=== PATIENT | male | born 1945 | race African-American/Black ===

== ENCOUNTER 2019-11-18 08:39 | Inpatient (IN) | payer OTHER ==
[2019-11-17 11:10] VITALS: BMI 25.9
--- NOTE | 2019-11-18 08:02 | HP ---
History & Physical Update - History History: No Change - Physical Physical: No Change - Assessment Assessment: No Change - Plan Plan: No Change
--- NOTE | 2019-11-18 08:03 | OP ---
Operative Note - Note: Operative Date: 11/18/19 Pre-Operative Diagnosis: prostate cancer Operation: prostate cryoablation and cystoscopy Post-Operative Diagnosis: Same as Pre-op Surgeon: Reid Green Anesthesiologist/AIRSET MOLDER: Mandy Ferrera Anesthesia: General Estimated Blood Loss (mls): 0 Drains & Tubes with Location: 18 fr fuller Operative Report Dictated: Yes
[2019-11-18] MEDS ORDERED: ACETAMINOPHEN 325 MG TABLET (FP) PO PRN (08:50)
[2019-11-18] MEDS ORDERED: ONDANSETRON 4 MG/2 ML VIAL IVPUSH PRN (08:50)
[2019-11-18] MEDS ORDERED: oxyCODONE HCL 5 MG TABLET PO PRN ×2 (08:50)
[2019-11-18] MEDS ORDERED: LACTATED RINGERS SOLUTION 1,000 ML IV SCH (09:00)
[2019-11-18] MEDS ORDERED: LIDOCAINE HCL/PF 2% SDV 5ML VIAL ONE ×2 (10:36→12:54)
[2019-11-18] MEDS ORDERED: PROPOFOL 20 ML ONE (10:36)
[2019-11-18] MEDS ORDERED: DESFLURANE GAS 240 ML BOTTLE IH ONE (10:38)
[2019-11-18] MEDS ORDERED: ceFAZolin SODIUM 1 GM VIAL IVPB ONE (11:56)
[2019-11-18] MEDS ORDERED: ceFAZolin SODIUM 1 GM VIAL ONE (12:21)
[2019-11-18] MEDS ORDERED: ROCURONIUM BROMIDE 50 MG/5 ML SYRINGE ONE (12:40)
[2019-11-18] MEDS ORDERED: PHENYLEPHRINE HCL 10 MG/1 ML SINGLE DOSE VIAL ONE (12:43)
[2019-11-18] MEDS ORDERED: GLYCOPYRROLATE 0.2 MG/1 ML VIAL ONE ×2 (12:47→13:19)
[2019-11-18] MEDS ORDERED: NEOSTIGMINE METHYLSULFATE 0.5 MG/1 ML - 10 ML MDV ONE (12:47)
[2019-11-18] MEDS ORDERED: KETOROLAC TROMETHAMINE 10 MG TABLET PO PRN (16:23)
[2019-11-18] MEDS: AMOX TR/POT CLAV 500MG/125MG TABLETS (FP) PO SCH (17:43)
[2019-11-18] MEDS: LACTATED RINGERS SOLUTION 1,000 ML IV SCH (17:46)
[2019-11-18] MEDS ORDERED: PT OWN MED DRAWER 7, Y5N ONE (21:32)
[2019-11-18] MEDS: DOXAZOSIN MESYLATE 4 MG TABLET PO SCH (21:35)
--- NOTE | 2019-11-18 23:45 | OP ---
DATE OF OPERATION: 11/18/2019 PREOPERATIVE DIAGNOSIS: Prostate cancer. POSTOPERATIVE DIAGNOSIS: Prostate cancer. PROCEDURE: Prostate cryoablation and cystoscopy. SURGEON: Reid Downey MD OIL HOUSE ATTENDANT: None. ANESTHESIA: General via endotracheal tube. ANESTHESIOLOGIST: HAYDEN Posada SPECIMENS: None. CULTURES: None. DRAINS: An 18-Botswanan Morejon catheter. ESTIMATED BLOOD LOSS: Negligible. COMPLICATIONS: None. DESCRIPTION OF PROCEDURE: Patient brought in the operating room, placed on the operating table in supine position. After the administration of intravenous antibiotics, sequential compression devices were placed. The patient was placed in dorsal lithotomy position. Perineum was shaved first, and the perineum and genitals were prepped and draped in usual sterile manner. An 18-B[place]wanan Morejon catheter was placed per urethra, and 10 mL placed in the balloon. Bladder was filled with 400 mL of sterile normal saline and clamped. The scrotum was elevated with a towel clip. Patient was prepped and draped in usual sterile manner and transrectal ultrasound probe was placed per rectum and transrectal ultrasound of the prostate was done. A plan was then devised for a whole-gland prostate cryoablation using 6 probes. Now, all 6 cryoablation probes were placed in the appropriate locations under ultrasound guidance. Two temperature sensors were placed, one in the external sphincter, one in the Denonvilliers fascia. Now, the indwelling Morejon catheter was removed. Flexible cystoscopy was done, demonstrated normal anterior urethra. Prostatic urethra demonstrated status post GreenLight laser ablation with some regrowth of the lateral lobes. Bladder was entered and thoroughly inspected. There were no foreign bodies, tumors, stones, or inflammation. Both ureteral orifices were in their usual location with clear efflux bilaterally. The Super Stiff guidewire was passed through the cystoscope and into the bladder. Cystoscope was removed. Urethral warmer was passed over the Super Stiff guidewire, and urethral warming was started. The probe positions were reconfirmed, and then, the cryoablation was done with 2 freeze/thaw cycles. At the end of the second thaw, temperature sensors and cryoablation probes were removed, leaving the urethral warmer in for an additional 5 minutes. Then, it was removed. The Morejon catheter replaced with an 18-Botswanan and placed on gravity drainage. Return minimally blood tinged. He had a sterile compressive dressing with bacitracin, 4 x 4, and Tegaderm. He tolerated the procedure well, was awoken from anesthesia in the operating room and extubated, transferred to the recovery room in stable condition. REID DOWNEY M.D. [id number]
--- NOTE | 2019-11-19 10:58 | PN ---
Progress Note (short form) - Note Progress Note: Anesthesia post op note POD#1. S/P Cystoscopy and cryoablation of prostate, under GA. Patient was admitted overnight due to poor oxygenation on room air. CXR, shows no acute abnormalities. Pat was prescribed Insentive spirometry and O2 on nasal cannula. This morning AAOX3. In bed not in any distress. saturation 88-94, after Deep inspirations and IS use. Patient quit smoking 5 months ago, reports no current URI. Vital signs stable otherwise. Suggesting eval by hospitalist/wool tamper, follow up. PFT? Continue O2 nasal cannula and IS.
[2019-11-19] MEDS: AMOX TR/POT CLAV 500MG/125MG TABLETS (FP) PO SCH ×2 (11:00→18:19)
--- NOTE | 2019-11-19 11:30 | PN ---
Physical Exam: SUBJECTIVE: Patient seen and examined at the bedside. Sitting in chair, denies any chest pain or shortness of breath. Feels well overall. Has never been diagnosed with any COPD or asthma in the past. No longer smokes, quit apx 5 months ago (used to smoke 1 pack per day since age 28). 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 OBJECTIVE: abg now d dimer now trop now ekg now Patient is a 74 year old male wth a significant past medical history of prostate cancer and former smoker. His other past medical history includes kidney stones, bph, lumbago, elevated psa with nocturia. Patient is s/p prostate cryoablation and cystoscopy on 11/18/2019 and post op noted to have hypoxia on room air with oxygen saturations at 88%. He is currently on 2 liters of nasal cannula with stable oxygen saturations. On exam patient appears comfortable sitting in chair, his breathing is easy and unlabored. fuller catheter with gross hematuria. he is speaking in clear sentences (danish speaking) imaging/studies: chest xray: no acute pathology abg: respiratory acidosis and metabolic alkalosis with hypoxemia ddimer: 92266, for a chest cta today to rule out pe trop negative x 1, trending Vital Signs Period Temp Pulse Resp BP Sys/Barrera Pulse Ox Last 24 Hr 97.4 F-99.4 F 70-100 13-20 90-148/50-85 94-98 GENERAL: The patient is awake, alert, and fully oriented, in no acute distress. HEAD: Normal with no signs of trauma. EYES: PERRL, extraocular movements intact, sclera anicteric, conjunctiva clear. No ptosis. ENT: Ears normal, nares patent, oropharynx clear without exudates, moist mucous membranes. NECK: Trachea midline, full range of motion, supple. LUNGS: Breath sounds diminished bilaterally, no wheezing, no crackles. no accessory muscle use HEART: Regular rate and rhythm, S1, S2 without murmur, rub or gallop. ABDOMEN: Soft, nontender, nondistended, normoactive bowel sounds, no guarding, no rebound, no hepatosplenomegaly, no masses. EXTREMITIES: no edema. NEUROLOGICAL: Normal speech, gait not observed. PSYCH: Normal mood, normal affect. SKIN: Warm, dry, normal turgor, no rashes or lesions noted Active Medications Generic Name Dose Route Start Last Admin Trade Name Freq PRN Reason Stop Dose Admin Acetaminophen 650 mg 11/18/19 08:50 Tylenol - PO Q4H PRN Pain-PACU ORDER X 2 DOSES ONLY Amoxicillin/Clavulanate Potassium 1 tab 11/18/19 17:30 11/18/19 17:43 Augmentin - 500mg Tablet PO 1 tab BIDWM WENDY Administration Doxazosin Mesylate 4 mg 11/18/19 22:00 11/18/19 21:35 Cardura - PO 4 mg HS WENDY Administration Lactated Ringer's 1,000 mls @ 75 mls/hr 11/18/19 16:30 11/18/19 17:46 Lactated Ringers Solution IV 75 mls/hr ASDIR WENDY Administration Ketorolac Tromethamine 10 mg 11/18/19 16:23 Toradol PO 11/23/19 16:22 Q6H PRN PAIN LEVEL 7-10 Ondansetron HCl 4 mg 11/18/19 08:50 Zofran Injection IVPUSH Q6H PRN NAUSEA AND/OR VOMITING ASSESSMENT/PLAN: Problem List - Problems (1) Hypoxia Assessment/Plan: Patient is s/p prostate cryoablation and cystoscopy on 11/18/2019 and post op noted to have hypoxia on room air with oxygen saturations at 88%. He is currently on 2 liters of nasal cannula with stable oxygen saturations. chest xray without any acute pathology started on incentive spirometer elevated d dimer for chest cta to further evaluate trending troponins pulmonary consult Code(s): R09.02 - HYPOXEMIA (2) Shortness of breath Code(s): R06.02 - SHORTNESS OF BREATH (3) Elevated d-dimer Assessment/Plan: elevated at 16k for chest cta to rule out PE, however, patient without tachycardia or chest pain. Code(s): R79.89 - OTHER SPECIFIED ABNORMAL FINDINGS OF BLOOD CHEMISTRY (4) Prostate cancer Assessment/Plan: Patient is s/p prostate cryoablation and cystoscopy on 11/18/2019, fuller cath with gross hematuria. hmg/hct stable. Code(s): C61 - MALIGNANT NEOPLASM OF PROSTATE (5) DVT prophylaxis Assessment/Plan: SCDs only secondary to gross hematuria Code(s): Z29.9 - ENCOUNTER FOR PROPHYLACTIC MEASURES, UNSPECIFIED (6) Prophylactic measure Assessment/Plan: fen tolerating po monitor electrolytes full code Code(s): Z29.9 - ENCOUNTER FOR PROPHYLACTIC MEASURES, UNSPECIFIED Visit type - Emergency Visit Emergency Visit: Yes Care time: The patient presented to the Emergency Department on the above date and was hospitalized for further evaluation of their emergent condition. - New Patient This patient is new to me today: Yes Date on this admission: 11/19/19 - Critical Care Critical Care patient: No - Discharge Referral Referred to [facility] Med P.C.: No
[2019-11-19 12:24] LABS: ARTERIAL BLD GAS O2 SATURATION 87.2 % (95-98); ARTERIAL BLOOD GAS PCO2 39.9 mmHg (35-45); ARTERIAL BLOOD GAS pH 7.44 (7.35-7.45)
[2019-11-19 12:25] LABS: ALLENS TEST POSITIVE
[2019-11-19] MEDS ORDERED: ALBUTEROL SO4 2.5/IPRATROPIUM 0.5 INH SOL 3 ML VIAL.NEB. NEB PRN (12:29)
[2019-11-19] MEDS ORDERED: PT OWN MED DRAWER 7, Y5N ONE ×3 (12:47→21:14)
[2019-11-19 14:12] LABS: BASO % 0.1 % (0-2.0); EOS % 0.7 % (0-4.5); HEMATOCRIT 37.6 % (35.4-49); HEMOGLOBIN 12.5 GM/dL (11.7-16.9); LYMPH % 11.8 % (8-40); MCH 30.1 pg (25.7-33.7); MCHC 33.4 g/dl (32.0-35.9); MEAN CELL VOLUME 90.2 fl (80-96); MONO % 8.8 % (3.8-10.2); NEUT % 78.6 % (42.8-82.8); PLATELET COUNT 135 K/MM3 (134-434); RBC 4.16 M/mm3 (4.00-5.60); RDW 15.1 % (11.9-15.9); WHITE BLOOD COUNT 8.1 K/mm3 (4.0-10.0)
[2019-11-19 14:29] LABS: ALBUMIN 2.6 g/dl (3.4-5.0); ALK PHOS 43 U/L (45-117); ANION GAP 6 MMOL/L (8-16); BILIRUBIN,TOTAL 0.7 mg/dL (0.2-1); BLOOD UREA NITROGEN 16.6 mg/dL (7-18); CALCIUM 8.1 mg/dL (8.5-10.1); CHLORIDE 108 mmol/L (98-107); CO2 28 mmol/L (21-32); CREATININE 1.1 mg/dL (0.55-1.3); GLUCOSE,RANDOM 140 mg/dL (74-106); MAGNESIUM 1.8 mg/dL (1.8-2.4); POTASSIUM 3.9 mmol/L (3.5-5.1); SGOT/AST 46 U/L (15-37); SGPT/ALT 26 U/L (13-61); SODIUM 141 mmol/L (136-145); TOT PROT 5.4 g/dl (6.4-8.2)
--- NOTE | 2019-11-19 17:40 | CON.PULM ---
Consult Consult Specialty:: PULMONARY Referred by:: NICOLASA Reason for Consultation:: HYPOXEMIA - History of Present Illness Chief Complaint: ADMITTED FOR UROLOGIC PROCEDURE History of Present Illness: Patient is a 74 year old male wth a significant past medical history of prostate cancer and former smoker,quit 5 months ago. Other history includes kidney stones, bph, lumbago,. Patient is s/p prostate cryoablation and cystoscopy yesterday and during post op care was noted to have hypoxia on room air with oxygen saturations at 88%. He is currently on 2 liters of nasal cannula with stable oxygen saturations. 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 Cardio/Vascular: No: AFIB Pulmonary: Yes: Other (no official dx of copd as per the patient) Gastrointestinal: No: Ascites Hepatobiliary: No: Cirrhosis Renal/: Yes: BPH, Cancer, Renal Calculi Heme/Onc: No: Anemia Psych: No: Addictions Musculoskeletal: Yes: Chronic low back pain Rheumatology: No: Fibromyalgia Endocrine: No: [place]'s Disease - Past Surgical History Additional Surgical History: cystoscopy/cryo=ablation prostate - Alcohol/Substance Use Hx Alcohol Use: No History of Substance Use: reports: None - Smoking History Smoking history: Former smoker Have you smoked in the past 12 months: Yes - Social History Place of : Other History of Recent Travel: No Home Medications - Allergies Allergies/Adverse Reactions: Allergies Allergy/AdvReac Type Severity Reaction Status Date / Time No Known Allergies Allergy Verified 11/17/19 11:10 - Home Medications Home Medications: Ambulatory Orders Doxazosin Mesylate 4 mg PO HS 11/17/19 Amoxicillin/Potassium Clav [Augmentin 500-125 Tablet] 1 each PO BID 7 Days #14 tablet 11/18/19 Ketorolac Tromethamine [Toradol] 10 mg PO Q6H #28 tablet 11/18/19 Family Medical History Family History: Unremarkable Review of Systems - Review of Systems Cardiovascular: denies: Chest Pain Respiratory: denies: Cough, Hemoptysis, SOB on Exertion, Wheezing Gastrointestinal: denies: Abdominal Pain Physical Exam Vital Sings: Vital Signs Temperature 99.4 F 11/19/19 14:59 Pulse Rate 81 11/19/19 14:59 Respiratory Rate 18 11/19/19 14:59 Blood Pressure 127/73 11/19/19 14:59 O2 Sat by Pulse Oximetry (%) 94 L 11/18/19 17:38 Constitutional: Yes: Calm Eyes: Yes: EOM Intact HENT: Yes: Normocephalic Neck: Yes: Trachea Midline Cardiovascular: Yes: S1, S2 Respiratory: Yes: CTA Bilaterally Gastrointestinal: Yes: Normal Bowel Sounds Renal/: Yes: Morejon Present Extremities: No: Calf Tenderness Edema: No Labs: CBC, BMP 11/19/19 13:30 11/19/19 13:30 ABG Results ABG pH 7.44 (7.35-7.45) 11/19/19 12:10 ABG pCO2 at Pt Temp 39.9 mmHg (35-45) 11/19/19 12:10 ABG pO2 at Pt Temp 54.0 mmHg (80-100) L 11/19/19 12:10 ABG HCO3 26.8 mmol/L (22-27) 11/19/19 12:10 ABG O2 Sat (Measured) 87.2 % (95-98) L 11/19/19 12:10 ABG O2 Content 15.9 % vol 11/19/19 12:10 ABG Base Excess 3.0 meq/l (-2-2) H 11/19/19 12:10 Imaging - Results Chest X-ray: Report Reviewed, Image Reviewed Cat Scan: Report Reviewed, Image Reviewed Problem List - Problems (1) Status post cystoscopy Code(s): Z98.890 - OTHER SPECIFIED POSTPROCEDURAL STATES (2) DVT prophylaxis Code(s): Z29.9 - ENCOUNTER FOR PROPHYLACTIC MEASURES, UNSPECIFIED (3) Hypoxia Code(s): R09.02 - HYPOXEMIA (4) Prostate cancer Code(s): C61 - MALIGNANT NEOPLASM OF PROSTATE Assessment/Plan CTA NEGATIVE FOR PE D-DIMER ELEVATED POST-OPERATIVELY EMPHYSEMATOUS CHANGES ON CT CHEST LIKELY RESPONSIBLE FOR HYPOXIA WOULD START MAINTENANCE BRONCHODILATORS OBTAINSPO2 PRE/POST AMBULATION TO DETERMINE NEED FOR HOME O2 Priyank CASILLAS MD
[2019-11-19] MEDS: BUDESONIDE/FORMETEROL FUMARATE 80/4.5 mcg INHALER IH SCH (22:16)
[2019-11-19] MEDS: LACTATED RINGERS SOLUTION 1,000 ML IV SCH (22:17)
[2019-11-19] MEDS: DOXAZOSIN MESYLATE 4 MG TABLET PO SCH (22:17)
[2019-11-20] MEDS ORDERED: PT OWN MED DRAWER 7, Y5N ONE ×4 (08:41→21:04)
[2019-11-20 09:16] LABS: EOS % 1.7 % (0-4.5); HEMOGLOBIN 12.8 GM/dL (11.7-16.9); LYMPH % 21.3 % (8-40); MCH 30.1 pg (25.7-33.7); MCHC 33.6 g/dl (32.0-35.9); MEAN CELL VOLUME 89.8 fl (80-96); MEAN PLT VOLUME 7.7 fl (7.5-11.1); MONO % 11.8 % (3.8-10.2); NEUT % 64.2 % (42.8-82.8); PLATELET COUNT 127 K/MM3 (134-434); RBC 4.23 M/mm3 (4.00-5.60); RDW 15.6 % (11.9-15.9); WHITE BLOOD COUNT 6.7 K/mm3 (4.0-10.0)
--- NOTE | 2019-11-20 09:38 | PN ---
Physical Exam: SUBJECTIVE: Patient seen and examined OBJECTIVE: Vital Signs Period Temp Pulse Resp BP Sys/Barrera Pulse Ox Last 24 Hr 98.1 F-99.4 F 79-97 18-20 127-159/67-77 GENERAL: The patient is awake, alert, and fully oriented, in no acute distress. HEAD: Normal with no signs of trauma. EYES: PERRL, extraocular movements intact, sclera anicteric, conjunctiva clear. No ptosis. ENT: Ears normal, nares patent, oropharynx clear without exudates, moist mucous membranes. NECK: Trachea midline, full range of motion, supple. LUNGS: Breath sounds equal, clear to auscultation bilaterally, no wheezes, no crackles, no accessory muscle use. HEART: Regular rate and rhythm, S1, S2 without murmur, rub or gallop. ABDOMEN: Soft, nontender, nondistended, normoactive bowel sounds, no guarding, no rebound, no hepatosplenomegaly, no masses. EXTREMITIES: 2+ pulses, warm, well-perfused, no edema. NEUROLOGICAL: Cranial nerves II through XII grossly intact. Normal speech, gait not observed. PSYCH: Normal mood, normal affect. SKIN: Warm, dry, normal turgor, no rashes or lesions noted Laboratory Results - last 24 hr 11/19/19 11/19/19 11/19/19 12:10 13:30 13:30 WBC RBC Hgb Hct MCV MCH MCHC RDW Plt Count MPV Absolute Neuts (auto) Neutrophils % Lymphocytes % Monocytes % Eosinophils % Basophils % Nucleated RBC % D-Dimer 26151 H Anticoagulation Therapy No Result Required. Puncture Site Right radial ABG pH 7.44 ABG pCO2 at Pt Temp 39.9 ABG pO2 at Pt Temp 54.0 L ABG HCO3 26.8 ABG O2 Sat (Measured) 87.2 L ABG O2 Content 15.9 ABG Base Excess 3.0 H Fidencio Test Positive Patient On Oxygen Yes O2 Delivery Device Nasal Oxygen Flow Rate 1l Vent Mode No Result Required. Vent Rate No Result Required. Mechanical Rate No Result Required. Pressure Support Vent No Result Required. Sodium 141 Potassium 3.9 Chloride 108 H Carbon Dioxide 28 Anion Gap 6 L BUN 16.6 Creatinine 1.1 Est GFR (CKD-EPI)AfAm 75.18 Est GFR (CKD-EPI)NonAf 64.86 Random Glucose 140 H Calcium 8.1 L Magnesium 1.8 Total Bilirubin 0.7 AST 46 H ALT 26 Alkaline Phosphatase 43 L Troponin I < 0.02 Total Protein 5.4 L Albumin 2.6 L 11/19/19 11/19/19 11/20/19 13:30 19:33 04:00 WBC 8.1 RBC 4.16 Hgb 12.5 Hct 37.6 MCV 90.2 MCH 30.1 MCHC 33.4 RDW 15.1 Plt Count 135 MPV 8.0 Absolute Neuts (auto) 6.4 Neutrophils % 78.6 Lymphocytes % 11.8 Monocytes % 8.8 Eosinophils % 0.7 Basophils % 0.1 Nucleated RBC % 0 D-Dimer Anticoagulation Therapy Puncture Site ABG pH ABG pCO2 at Pt Temp ABG pO2 at Pt Temp ABG HCO3 ABG O2 Sat (Measured) ABG O2 Content ABG Base Excess Fidencio Test Patient On Oxygen O2 Delivery Device Oxygen Flow Rate Vent Mode Vent Rate Mechanical Rate Pressure Support Vent Sodium Potassium Chloride Carbon Dioxide Anion Gap BUN Creatinine Est GFR (CKD-EPI)AfAm Est GFR (CKD-EPI)NonAf Random Glucose Calcium Magnesium Total Bilirubin AST ALT Alkaline Phosphatase Troponin I 0.03 0.03 Total Protein Albumin 11/20/19 08:55 WBC 6.7 RBC 4.23 Hgb 12.8 Hct 38.0 MCV 89.8 MCH 30.1 MCHC 33.6 RDW 15.6 Plt Count 127 L MPV 7.7 Absolute Neuts (auto) 4.3 Neutrophils % 64.2 Lymphocytes % 21.3 D Monocytes % 11.8 H Eosinophils % 1.7 D Basophils % 1.0 D Nucleated RBC % 0 D-Dimer Anticoagulation Therapy Puncture Site ABG pH ABG pCO2 at Pt Temp ABG pO2 at Pt Temp ABG HCO3 ABG O2 Sat (Measured) ABG O2 Content ABG Base Excess Fidencio Test Patient On Oxygen O2 Delivery Device Oxygen Flow Rate Vent Mode Vent Rate Mechanical Rate Pressure Support Vent Sodium Potassium Chloride Carbon Dioxide Anion Gap BUN Creatinine Est GFR (CKD-EPI)AfAm Est GFR (CKD-EPI)NonAf Random Glucose Calcium Magnesium Total Bilirubin AST ALT Alkaline Phosphatase Troponin I Total Protein Albumin Active Medications Generic Name Dose Route Start Last Admin Trade Name Freq PRN Reason Stop Dose Admin Acetaminophen 650 mg 11/18/19 08:50 Tylenol - PO Q4H PRN Pain-PACU ORDER X 2 DOSES ONLY Albuterol/Ipratropium 1 amp 11/19/19 12:29 Duoneb - NEB Q6H PRN SHORTNESS OF BREATH Amoxicillin/Clavulanate Potassium 1 tab 11/18/19 17:30 11/19/19 18:19 Augmentin - 500mg Tablet PO 1 tab BIDWM WENDY Administration Budesonide/Formoterol Fumarate 2 puff 11/19/19 22:00 11/19/19 22:16 Symbicort 80/4.5mcg - IH 2 puff BID WENDY Administration Doxazosin Mesylate 4 mg 11/18/19 22:00 11/19/19 22:17 Cardura - PO 4 mg HS WENDY Administration Lactated Ringer's 1,000 mls @ 75 mls/hr 11/18/19 16:30 11/19/19 22:17 Lactated Ringers Solution IV 75 mls/hr ASDIR WENDY Administration Ketorolac Tromethamine 10 mg 11/18/19 16:23 Toradol PO 11/23/19 16:22 Q6H PRN PAIN LEVEL 7-10 Ondansetron HCl 4 mg 11/18/19 08:50 Zofran Injection IVPUSH Q6H PRN NAUSEA AND/OR VOMITING ASSESSMENT/PLAN: Problem List - Problems (1) Hypoxia Code(s): R09.02 - HYPOXEMIA (2) Shortness of breath Code(s): R06.02 - SHORTNESS OF BREATH (3) Elevated d-dimer Code(s): R79.89 - OTHER SPECIFIED ABNORMAL FINDINGS OF BLOOD CHEMISTRY (4) Prostate cancer Code(s): C61 - MALIGNANT NEOPLASM OF PROSTATE (5) DVT prophylaxis Code(s): Z29.9 - ENCOUNTER FOR PROPHYLACTIC MEASURES, UNSPECIFIED (6) Prophylactic measure Code(s): Z29.9 - ENCOUNTER FOR PROPHYLACTIC MEASURES, UNSPECIFIED
--- NOTE | 2019-11-20 09:47 | PN ---
Progress Note (short form) - Note Progress Note: Physical Exam: SUBJECTIVE: Patient seen and examined at the bedside. Sitting in chair, denies any chest pain or shortness of breath. Feels well overall. Has never been diagnosed with any COPD or asthma in the past. No longer smokes, quit apx 5 months ago (used to smoke 1 pack per day since age 28). Works in [employer] for over 20 years at [employer] and is exposed to cleaning chemicals. OBJECTIVE: abg now d dimer now trop now ekg now Patient is a 74 year old male wth a significant past medical history of prostate cancer and former smoker. His other past medical history includes kidney stones , bph, lumbago, elevated psa with nocturia. Patient is s/p prostate cryoablation and cystoscopy on 11/18/2019 and post op noted to have hypoxia on room air with oxygen saturations at 88%. He is currently on 2 liters of nasal cannula with stable oxygen saturations. On exam patient appears comfortable sitting in chair, his breathing is easy and unlabored. fuller catheter with gross hematuria. he is speaking in clear sentences (estonian speaking) imaging/studies: chest xray: no acute pathology abg: respiratory acidosis and metabolic alkalosis with hypoxemia ddimer: 99571, for a chest cta today to rule out pe trop negative x 1, trending Vital Signs Period Temp Pulse Resp BP Sys/Barrera Pulse Ox Last 24 Hr 97.4 F-99.4 F 70-100 13-20 90-148/50-85 94-98 GENERAL: The patient is awake, alert, and fully oriented, in no acute distress. HEAD: Normal with no signs of trauma. EYES: PERRL, extraocular movements intact, sclera anicteric, conjunctiva clear. No ptosis. ENT: Ears normal, nares patent, oropharynx clear without exudates, moist mucous membranes. NECK: Trachea midline, full range of motion, supple. LUNGS: Breath sounds diminished bilaterally, no wheezing, no crackles. no accessory muscle use HEART: Regular rate and rhythm, S1, S2 without murmur, rub or gallop. ABDOMEN: Soft, nontender, nondistended, normoactive bowel sounds, no guarding, no rebound, no hepatosplenomegaly, no masses. EXTREMITIES: no edema. NEUROLOGICAL: Normal speech, gait not observed. PSYCH: Normal mood, normal affect. SKIN: Warm, dry, normal turgor, no rashes or lesions noted Active Medications Generic Name Dose Route Start Last Admin Trade Name Freq PRN Reason Stop Dose Admin Acetaminophen 650 mg 11/18/19 08:50 Tylenol - PO Q4H PRN Pain-PACU ORDER X 2 DOSES ONLY Amoxicillin/Clavulanate Potassium 1 tab 11/18/19 17:30 11/18/19 17:43 Augmentin - 500mg Tablet PO 1 tab BIDWM WENDY Administration Doxazosin Mesylate 4 mg 11/18/19 22:00 11/18/19 21:35 Cardura - PO 4 mg HS WENDY Administration Lactated Ringer's 1,000 mls @ 75 mls/hr 11/18/19 16:30 11/18/19 17:46 Lactated Ringers Solution IV 75 mls/hr ASDIR WENDY Administration Ketorolac Tromethamine 10 mg 11/18/19 16:23 Toradol PO 11/23/19 16:22 Q6H PRN PAIN LEVEL 7-10 Ondansetron HCl 4 mg 11/18/19 08:50 Zofran Injection IVPUSH Q6H PRN NAUSEA AND/OR VOMITING ASSESSMENT/PLAN: Problem List - Problems (1) Hypoxia Assessment/Plan: Patient is s/p prostate cryoablation and cystoscopy on 11/18/2019 and post op noted to have hypoxia on room air with oxygen saturations at 88%. He is currently on 2 liters of nasal cannula with stable oxygen saturations. chest xray without any acute pathology started on incentive spirometer elevated d dimer for chest cta to further evaluate trending troponins pulmonary consult Code(s): R09.02 - HYPOXEMIA (2) Shortness of breath Code(s): R06.02 - SHORTNESS OF BREATH (3) Elevated d-dimer Assessment/Plan: elevated at 16k for chest cta to rule out PE, however, patient without tachycardia or chest pain. Code(s): R79.89 - OTHER SPECIFIED ABNORMAL FINDINGS OF BLOOD CHEMISTRY (4) Prostate cancer Assessment/Plan: Patient is s/p prostate cryoablation and cystoscopy on 11/18/2019, fuller cath with gross hematuria. hmg/hct stable. Code(s): C61 - MALIGNANT NEOPLASM OF PROSTATE (5) DVT prophylaxis Assessment/Plan: SCDs only secondary to gross hematuria Code(s): Z29.9 - ENCOUNTER FOR PROPHYLACTIC MEASURES, UNSPECIFIED (6) Prophylactic measure Assessment/Plan: fen tolerating po monitor electrolytes full code Code(s): Z29.9 - ENCOUNTER FOR PROPHYLACTIC MEASURES, UNSPECIFIED
--- NOTE | 2019-11-20 09:52 | EKG ---
Test Reason : Blood Pressure : / mmHG Vent. Rate : 096 BPM Atrial Rate : 096 BPM P-R Int : 150 ms QRS Dur : 082 ms QT Int : 348 ms P-R-T Axes : 066 -01 037 degrees QTc Int : 439 ms SINUS RHYTHM WITH OCCASIONAL PREMATURE VENTRICULAR COMPLEXES OTHERWISE NORMAL ECG NO PREVIOUS ECGS AVAILABLE Confirmed by Julio Liu MD ([id number]) on 11/20/2019 9:52:09 AM Referred By: Reid Green Confirmed By:Julio Liu MD
[2019-11-20 09:55] LABS: ALBUMIN 2.8 g/dl (3.4-5.0); BILIRUBIN,TOTAL 0.8 mg/dL (0.2-1); BLOOD UREA NITROGEN 14.1 mg/dL (7-18); CALCIUM 8.1 mg/dL (8.5-10.1); MAGNESIUM 1.8 mg/dL (1.8-2.4); POTASSIUM 3.8 mmol/L (3.5-5.1); TOT PROT 5.6 g/dl (6.4-8.2)
[2019-11-20] MEDS: AMOX TR/POT CLAV 500MG/125MG TABLETS (FP) PO SCH ×2 (10:48→17:31)
[2019-11-20] MEDS: BUDESONIDE/FORMETEROL FUMARATE 80/4.5 mcg INHALER IH SCH ×2 (10:48→21:18)
--- NOTE | 2019-11-20 13:49 | PN ---
Progress Note (short form) - Note Progress Note: PULMONARY OFFERS NO COMPLAINTS VSS/AFEBRILE Constitutional: Yes: Calm Eyes: Yes: EOM Intact HENT: Yes: Normocephalic Neck: Yes: Trachea Midline Cardiovascular: Yes: S1, S2 Respiratory: Yes: CTA Bilaterally Gastrointestinal: Yes: Normal Bowel Sounds Renal/: Yes: Morejon Present Extremities: No: Calf Tenderness Edema: No Labs: NOTED - Results Chest X-ray: Report Reviewed, Image Reviewed Cat Scan: Report Reviewed, Image Reviewed Problem List - Problems (1) Status post cystoscopy Code(s): Z98.890 - OTHER SPECIFIED POSTPROCEDURAL STATES (2) DVT prophylaxis Code(s): Z29.9 - ENCOUNTER FOR PROPHYLACTIC MEASURES, UNSPECIFIED (3) Hypoxia Code(s): R09.02 - HYPOXEMIA (4) Prostate cancer Code(s): C61 - MALIGNANT NEOPLASM OF PROSTATE Assessment/Plan CTA NEGATIVE FOR PE D-DIMER ELEVATED POST-OPERATIVELY EMPHYSEMATOUS CHANGES ON CT CHEST LIKELY RESPONSIBLE FOR HYPOXIA WOULD START MAINTENANCE BRONCHODILATORS SPO2 PRE/POST AMBULATION REVIEWED/PATIENT REQUIRES HOME O2 Priyank CASILLAS MD Problem List - Problems (1) Status post cystoscopy Code(s): Z98.890 - OTHER SPECIFIED POSTPROCEDURAL STATES (2) DVT prophylaxis Code(s): Z29.9 - ENCOUNTER FOR PROPHYLACTIC MEASURES, UNSPECIFIED (3) Hypoxia Code(s): R09.02 - HYPOXEMIA (4) Prostate cancer Code(s): C61 - MALIGNANT NEOPLASM OF PROSTATE
--- NOTE | 2019-11-20 15:15 | PN ---
Physical Exam: SUBJECTIVE: Patient seen and examined at the bedside. he ambulated with the respiratory therapist around the pod. He denies any dizziness or lig htheadedness with ambulation. OBJECTIVE: Patient is a 74 year old male with a significant past medical history of prostate cancer and former smoker. His other past medical history includes kidney stones, bph, lumbago, elevated psa with nocturia. Patient is s/p prostate cryoablation and cystoscopy on 11/18/2019 and post op noted to have hypoxia on r oom air with oxygen saturations at 88%. He is currently on 2 liters of nasal cannula with stable oxygen saturations. On exam patient appears comfortable ambulating around the pod, his breathing is easy and unlabored. fuller catheter with gross hematuria. he is speaking in clear sentences ([place] speaking). Per respiratory pre and post, patient requires home oxygen therapy. imaging/studies: chest xray: no acute pathology abg: respiratory acidosis and metabolic alkalosis with hypoxemia ddimer: 62723, chest cta negative for PE, found to have severe COPD and centr ilobular emphysema mainly in the upper lobes. troponins negative. Vital Signs Period Temp Pulse Resp BP Sys/Barrera Pulse Ox Last 24 Hr 98.1 F-99.4 F 79-114 18-19 127-159/67-77 93 GENERAL: The patient is awake, alert, and fully oriented, in no acute distress. HEAD: Normal with no signs of trauma. EYES: PERRL, extraocular movements intact, sclera anicteric, conjunctiva clear. No ptosis. ENT: Ears normal, nares patent, oropharynx clear without exudates, moist mucous membranes. NECK: Trachea midline, full range of motion, supple. LUNGS: Breath sounds diminished bilaterally, no wheezing, no crackles. no accessory muscle use HEART: Regular rate and rhythm, S1, S2 without murmur, rub or gallop. ABDOMEN: Soft, nontender, nondistended, normoactive bowel sounds, no guarding, no rebound, no hepatosplenomegaly, no masses. EXTREMITIES: no edema. NEUROLOGICAL: Normal speech, gait not observed. PSYCH: Normal mood, normal affect. SKIN: Warm, dry, normal turgor, no rashes or lesions noted Laboratory Results - last 24 hr 11/19/19 11/19/19 11/19/19 13:30 13:30 13:30 WBC 8.1 RBC 4.16 Hgb 12.5 Hct 37.6 MCV 90.2 MCH 30.1 MCHC 33.4 RDW 15.1 Plt Count 135 MPV 8.0 Absolute Neuts (auto) 6.4 Neutrophils % 78.6 Lymphocytes % 11.8 Monocytes % 8.8 Eosinophils % 0.7 Basophils % 0.1 Nucleated RBC % 0 D-Dimer 05635 H Sodium 141 Potassium 3.9 Chloride 108 H Carbon Dioxide 28 Anion Gap 6 L BUN 16.6 Creatinine 1.1 Est GFR (CKD-EPI)AfAm 75.18 Est GFR (CKD-EPI)NonAf 64.86 Random Glucose 140 H Calcium 8.1 L Magnesium 1.8 Total Bilirubin 0.7 AST 46 H ALT 26 Alkaline Phosphatase 43 L Troponin I < 0.02 Total Protein 5.4 L Albumin 2.6 L 11/19/19 11/20/19 11/20/19 19:33 04:00 08:55 WBC 6.7 RBC 4.23 Hgb 12.8 Hct 38.0 MCV 89.8 MCH 30.1 MCHC 33.6 RDW 15.6 Plt Count 127 L MPV 7.7 Absolute Neuts (auto) 4.3 Neutrophils % 64.2 Lymphocytes % 21.3 D Monocytes % 11.8 H Eosinophils % 1.7 D Basophils % 1.0 D Nucleated RBC % 0 D-Dimer Sodium Potassium Chloride Carbon Dioxide Anion Gap BUN Creatinine Est GFR (CKD-EPI)AfAm Est GFR (CKD-EPI)NonAf Random Glucose Calcium Magnesium Total Bilirubin AST ALT Alkaline Phosphatase Troponin I 0.03 0.03 Total Protein Albumin 11/20/19 08:55 WBC RBC Hgb Hct MCV MCH MCHC RDW Plt Count MPV Absolute Neuts (auto) Neutrophils % Lymphocytes % Monocytes % Eosinophils % Basophils % Nucleated RBC % D-Dimer Sodium 141 Potassium 3.8 Chloride 107 Carbon Dioxide 27 Anion Gap 7 L BUN 14.1 Creatinine 1.0 Est GFR (CKD-EPI)AfAm 84.36 Est GFR (CKD-EPI)NonAf 72.78 Random Glucose 136 H Calcium 8.1 L Magnesium 1.8 Total Bilirubin 0.8 AST 36 ALT 24 Alkaline Phosphatase 42 L Troponin I Total Protein 5.6 L Albumin 2.8 L Active Medications Generic Name Dose Route Start Last Admin Trade Name Freq PRN Reason Stop Dose Admin Acetaminophen 650 mg 11/18/19 08:50 Tylenol - PO Q4H PRN Pain-PACU ORDER X 2 DOSES ONLY Albuterol/Ipratropium 1 amp 11/19/19 12:29 Duoneb - NEB Q6H PRN SHORTNESS OF BREATH Amoxicillin/Clavulanate Potassium 1 tab 11/18/19 17:30 11/20/19 10:48 Augmentin - 500mg Tablet PO 1 tab BIDWM WENDY Administration Budesonide/Formoterol Fumarate 2 puff 11/19/19 22:00 11/20/19 10:48 Symbicort 80/4.5mcg - IH 2 puff BID WENDY Administration Doxazosin Mesylate 4 mg 11/18/19 22:00 11/19/19 22:17 Cardura - PO 4 mg HS WENDY Administration Lactated Ringer's 1,000 mls @ 75 mls/hr 11/18/19 16:30 11/19/19 22:17 Lactated Ringers Solution IV 75 mls/hr ASDIR WENDY Administration Ketorolac Tromethamine 10 mg 11/18/19 16:23 Toradol PO 11/23/19 16:22 Q6H PRN PAIN LEVEL 7-10 Ondansetron HCl 4 mg 11/18/19 08:50 Zofran Injection IVPUSH Q6H PRN NAUSEA AND/OR VOMITING ASSESSMENT/PLAN: Problem List - Problems (1) Hypoxia Assessment/Plan: Patient is s/p prostate cryoablation and cystoscopy on 11/18/2019 and post op noted to have hypoxia on room air with oxygen saturations at 88%. He is currently on 2 liters of nasal cannula with stable oxygen saturations. chest xray without any acute pathology. negative for PE, but found to have moderately severe COPD and stress centrilobular emphysema. Started on Symbicort on incentive spirometer will need f/u with technical testing engineer as an outpatient. Code(s): R09.02 - HYPOXEMIA (2) Shortness of breath Code(s): R06.02 - SHORTNESS OF BREATH (3) Elevated d-dimer Assessment/Plan: elevated at 16k chest ct negative for PE Code(s): R79.89 - OTHER SPECIFIED ABNORMAL FINDINGS OF BLOOD CHEMISTRY (4) Prostate cancer Assessment/Plan: Patient is s/p prostate cryoablation and cystoscopy on 11/18/2019, fuller cath with gross hematuria. hmg/hct stable. Code(s): C61 - MALIGNANT NEOPLASM OF PROSTATE (5) DVT prophylaxis Assessment/Plan: SCDs only secondary to gross hematuria Code(s): Z29.9 - ENCOUNTER FOR PROPHYLACTIC MEASURES, UNSPECIFIED (6) Prophylactic measure Assessment/Plan: fen tolerating po monitor electrolytes full code Code(s): Z29.9 - ENCOUNTER FOR PROPHYLACTIC MEASURES, UNSPECIFIED Visit type - Emergency Visit Emergency Visit: Yes ED Registration Date: 11/19/19 Care time: The patient presented to the Emergency Department on the above date and was hospitalized for further evaluation of their emergent condition. - New Patient This patient is new to me today: No - Critical Care Critical Care patient: No - Discharge Referral Referred to [facility] Med P.C.: No
[2019-11-20] MEDS: DOXAZOSIN MESYLATE 4 MG TABLET PO SCH (21:18)
[2019-11-21] MEDS ORDERED: PT OWN MED DRAWER 7, Y5N ONE (09:43)
[2019-11-21] MEDS: BUDESONIDE/FORMETEROL FUMARATE 80/4.5 mcg INHALER IH SCH (09:44)
[2019-11-21] MEDS: AMOX TR/POT CLAV 500MG/125MG TABLETS (FP) PO SCH (09:44)
--- NOTE | 2019-11-21 10:36 | DS ---
Physical Exam: SUBJECTIVE: Patient seen and examined OBJECTIVE: Patient seen and examined at the bedside. he ambulated with the respiratory therapist around the pod. He denies any dizziness or lightheadedness with ambulation. OBJECTIVE: Patient is a 74 year old male with a significant past medical history of prostate cancer and former smoker. His other past medical history includes kidney stones, bph, lumbago, elevated psa with nocturia. Patient is s/p prostate cryoablation and cystoscopy on 11/18/2019 and post op noted to have hypoxia on room air with oxygen saturations at 88%. He is currently on 2 liters of nasal cannula with stable oxygen saturations. On exam patient appears comfortable ambulating around the pod, his breathing is easy and unlabored. fuller catheter with gross hematuria. he is speaking in clear sentences (divehi speaking). Per respiratory pre and post, patient requires home oxygen therapy. imaging/studies: chest xray: no acute pathology abg: respiratory acidosis and metabolic alkalosis with hypoxemia ddimer: 93467, chest cta negative for PE, found to have severe COPD and centrilobular emphysema mainly in the upper lobes. troponins negative. Vital Signs Period Temp Pulse Resp BP Sys/Barrera Pulse Ox Last 24 Hr 98 F-98.5 F 69-83 18-20 122-143/66-75 93-93 PHYSICAL EXAM GENERAL: The patient is awake, alert, and fully oriented, in no acute distress. HEAD: Normal with no signs of trauma. EYES: PERRL, extraocular movements intact, sclera anicteric, conjunctiva clear. No ptosis. ENT: Ears normal, nares patent, oropharynx clear without exudates, moist mucous membranes. NECK: Trachea midline, full range of motion, supple. LUNGS: Breath sounds diminished bilaterally throughout lung [place] HEART: Regular rate and rhythm, S1, S2 without murmur, rub or gallop. ABDOMEN: Soft, nontender, nondistended, normoactive bowel sounds, no guarding, no rebound, no hepatosplenomegaly, no masses. EXTREMITIES: no edema. NEUROLOGICAL: Normal speech, gait not observed. PSYCH: Normal mood, normal affect. SKIN: Warm, dry, normal turgor, no rashes or lesions noted LABS HOSPITAL COURSE: Date of Admission:11/19/19 Date of Discharge: 11/21/19 Minutes to complete discharge: 45 Discharge Summary Problems reviewed: Yes Reason For Visit: PROSTATE CANCER Current Active Problems DVT prophylaxis (Acute) Elevated d-dimer (Acute) Hypoxia (Acute) Prophylactic measure (Acute) Prostate cancer (Acute) Shortness of breath (Acute) Status post cystoscopy (Acute) Condition: Good - Instructions Diet, Activity, Other Instructions: disch with fuller large and leg bags and instruct, rx augmentin and toradol prn, remove bandage 11/19, ok to shower, no bathing, rto 11/23 Referrals: Reid Green MD [Staff Physician] - - Home Medications Comprehensive Discharge Medication List: Ambulatory Orders Doxazosin Mesylate 4 mg PO HS 11/17/19 Amoxicillin/Potassium Clav [Augmentin 500-125 Tablet] 1 each PO BID 7 Days #14 tablet 11/18/19 Ketorolac Tromethamine [Toradol] 10 mg PO Q6H #28 tablet 11/18/19 Amox-Tr/K Cl [Augmentin 500-125mg Tablet -] 1 tab PO BIDWM #14 tablet 11/21/19 Budesonide/Formeterol Fumarate [SYMBICORT 80/4.5mcg -] 2 puff IH BID #1 inhaler 11/21/19 Doxazosin Mesylate [Cardura -] 4 mg PO HS tablet 11/21/19 Ketorolac Tromethamine [Toradol -] 10 mg PO Q6H PRN #20 tablet 11/21/19 Problem List - Problems (1) Emphysema lung Assessment/Plan: patient de saturates on room air with ambulation and at times at rest, will require home oxygen to maintain levels above 92% Code(s): J43.9 - EMPHYSEMA, UNSPECIFIED (2) Severe chronic obstructive pulmonary disease Assessment/Plan: Patient is s/p prostate cryoablation and cystoscopy on 11/18/2019 and post op noted to have hypoxia on room air with oxygen saturations at 88%. He is currently on 2 liters of nasal cannula with stable oxygen saturations. chest xray without any acute pathology. negative for PE, but found to have moderately severe COPD and stress centrilobular emphysema. Started on Symbicort on incentive spirometer will need f/u with beam carrier hauler pusher as an outpatient. patient de saturates on room air with ambulation and at times at rest, will require home oxygen to maintain levels above 92% Code(s): J44.9 - CHRONIC OBSTRUCTIVE PULMONARY DISEASE, UNSPECIFIED (3) COPD (chronic obstructive pulmonary disease) Code(s): J44.9 - CHRONIC OBSTRUCTIVE PULMONARY DISEASE, UNSPECIFIED (4) Hypoxia Assessment/Plan: . Code(s): R09.02 - HYPOXEMIA (5) Shortness of breath Code(s): R06.02 - SHORTNESS OF BREATH (6) Elevated d-dimer Assessment/Plan: elevated at 16k chest ct negative for PE Code(s): R79.89 - OTHER SPECIFIED ABNORMAL FINDINGS OF BLOOD CHEMISTRY (7) Prostate cancer Assessment/Plan: Patient is s/p prostate cryoablation and cystoscopy on 11/18/2019, fuller cath with gross hematuria. hmg/hct stable. follow up with urology as an outpatient patient to be discharged with leg bag per urologist (Dr. Green) Code(s): C61 - MALIGNANT NEOPLASM OF PROSTATE (8) DVT prophylaxis Assessment/Plan: SCDs only secondary to gross hematuria Code(s): Z29.9 - ENCOUNTER FOR PROPHYLACTIC MEASURES, UNSPECIFIED (9) Prophylactic measure Code(s): Z29.9 - ENCOUNTER FOR PROPHYLACTIC MEASURES, UNSPECIFIED This patient is new to me today: No Emergency Visit: Yes ED Registration Date: 11/19/19 Care time: The patient presented to the Emergency Department on the above date and was hospitalized for further evaluation of their emergent condition. Critical Care patient: No - Discharge Referral Referred to [facility] Med P.C.: No
--- NOTE | 2019-11-21 10:51 | PN ---
Progress Note (short form) - Note Progress Note: PULMONARY Denies shortness of breath, cough or wheezing. Vital Signs Period Temp Pulse Resp BP Sys/Barrera Pulse Ox Last 24 Hr 98 F-98.5 F 69-83 18-20 122-143/66-75 93-93 Gen: NAD at rest Heart: RRR Lung: decreased breath sounds at the bases Abd: soft, nontender Ext: no edema CBC, BMP 11/20/19 08:55 11/20/19 08:55 Active Medications Acetaminophen (Tylenol -) 650 mg PO Q4H PRN PRN Reason: Pain-PACU ORDER X 2 DOSES ONLY Albuterol/Ipratropium (Duoneb -) 1 amp NEB Q6H PRN PRN Reason: SHORTNESS OF BREATH Amoxicillin/Clavulanate Potassium (Augmentin - 500mg Tablet) 1 tab PO BIDWM [facility] Last Admin: 11/21/19 09:44 Dose: 1 tab Documented by: Budesonide/Formoterol Fumarate (Symbicort 80/4.5mcg -) 2 puff IH BID [facility] Last Admin: 11/21/19 09:44 Dose: 2 puff Documented by: Doxazosin Mesylate (Cardura -) 4 mg PO HS [facility] Last Admin: 11/20/19 21:18 Dose: 4 mg Documented by: Ketorolac Tromethamine (Toradol) 10 mg PO Q6H PRN PRN Reason: PAIN LEVEL 7-10 Stop: 11/23/19 16:22 Ondansetron HCl (Zofran Injection) 4 mg IVPUSH Q6H PRN PRN Reason: NAUSEA AND/OR VOMITING A/P Prostate Ca s/p cryoablation/cystoscopy COPD/Emphysema Hypoxia Thrombocytopenia - O2 to keep Sp2O2 >90% - check ambulatory SpO2 on room air to assess for home O2 - inhaled bronchodilators - outpt PFTs - DVT prophylaxis
[2019-11-21 11:39] LABS: BASO % 0.2 % (0-2.0); EOS % 1.5 % (0-4.5); HEMATOCRIT 36.9 % (35.4-49); HEMOGLOBIN 12.2 GM/dL (11.7-16.9); LYMPH % 11.8 % (8-40); MCH 29.7 pg (25.7-33.7); MCHC 32.9 g/dl (32.0-35.9); MEAN CELL VOLUME 90.1 fl (80-96); MEAN PLT VOLUME 7.9 fl (7.5-11.1); MONO % 9.7 % (3.8-10.2); NEUT % 76.8 % (42.8-82.8); PLATELET COUNT 127 K/MM3 (134-434); RDW 15.5 % (11.9-15.9); WHITE BLOOD COUNT 7.2 K/mm3 (4.0-10.0)
[2019-11-21 12:04] LABS: ALBUMIN 2.6 g/dl (3.4-5.0); BILIRUBIN,TOTAL 0.7 mg/dL (0.2-1); BLOOD UREA NITROGEN 13.2 mg/dL (7-18); CREATININE 0.9 mg/dL (0.55-1.3); MAGNESIUM 2.1 mg/dL (1.8-2.4); POTASSIUM 3.9 mmol/L (3.5-5.1); TOT PROT 5.6 g/dl (6.4-8.2)
[2019-11-21 14:58] VITALS: BP 127/76; PULSE 85; TEMP 97.9
[2019-11-21 16:07] LABS: ANISOCYTOSIS 1+; MACROCYTOSIS 0; PLATELET ESTIMATE DECREASED
== END 2019-11-21 16:00 | disposition home or self-care (01) | DRG 707 ==
LOC: JASUSAT 08:39 → SUATTDRO 08:39 → JASU-SURG 08:39 → J7W 17:15 → J6S 17:17 → JASUSAT 11-19 07:41 → JERBED 11-19 07:41 → J6S 11-20 08:23
PROVIDERS: ADMIT Internal Medicine; ATTEND Nurse Practitioner Family
PROC: 0V503ZZ Destruction of Prostate, Percutaneous Approach (ICD-10-PCS; principal; 2019-11-18 11:00)
PROC: 0TJB8ZZ Inspection of Bladder, Via Natural or Artificial Opening Endoscopic (ICD-10-PCS; 2019-11-18 11:00)
DX: C61 Malignant neoplasm of prostate (principal); E87.2 Acidosis; E87.3 Alkalosis; N40.0 Benign prostatic hyperplasia without lower urinary tract symptoms; J43.9 Emphysema, unspecified; M54.5 Low back pain; R09.02 Hypoxemia; D69.6 Thrombocytopenia, unspecified; R06.02 Shortness of breath; R79.89 Other specified abnormal findings of blood chemistry; Z98.890 Other specified postprocedural states; Z87.891 Personal history of nicotine dependence
CPT/HCPCS: 36415; 36600; 71045-TC-FY; 71275-TC; 80053; 82803; 83735; 84484; 85025; 85379; 93005; 93010; 94760; 94761; Q9967